=== PATIENT | female | born 1945 | race African-American/Black ===

== ENCOUNTER 2020-08-04 07:25 | Day surgery (SDC) | payer MEDICARE ==
[2020-08-03 12:43] VITALS: BMI 24.8
[2020-08-04 07:58] LABS: #Lymphocytes 0.9 thou/uL (1.20-3.40); #Monocytes 0.9 thou/uL (0.11-0.59); #Neutrophils 11.4 thou/uL (1.40-6.50); %Lymphocytes 6.7 % (21.0-51.0); %Monocytes 6.9 % (0.0-10.0); %Neutrophils 86.4 % (42.0-75.0); Hemoglobin 11.5 g/dL (12.0-16.0); Mean Corpuscular HGB CONC 32.3 g/dL (32.0-36.0); Mean Corpuscular Hemoglobin 29.9 pg (27.0-31.0); Mean Corpuscular Volume 92.5 fL (78.0-98.0); Mean Platelet Volume 7.4 fL (7.4-10.4); Platelet Count 281 thou/uL (130-400); RBC Distribution Width 13.1 % (11.5-14.5); Red Blood Cell (RBC) Count 3.86 mill/uL (4.20-5.40); White Blood Cell (WBC) Count 13.2 thou/uL (4.8-10.8)
[2020-08-04 08:06] LABS: INR-International Normal Ratio 1.1; PTT 30.9 sec (22.9-36.1); Prothrombin Time 14.7 sec (12.0-14.7)
[2020-08-04] MEDS ORDERED: Sodium Bicarbonate 2.5 MEQ/5 ML VIAL ONE (08:53)
[2020-08-04] MEDS ORDERED: Lidocaine 1% PF 5 ML VIAL ONE ×2 (08:53→09:28)
[2020-08-04] MEDS ORDERED: Fentanyl 100 MCG/2 ML VIAL ONE (08:54)
[2020-08-04] MEDS ORDERED: Midazolam HCl 2 mg/2 ml Vial ONE (08:54)
[2020-08-04] MEDS ORDERED: FLU VACC QS2020-21(65YR UP)/PF 240 MCG/0.7 ML SYRINGE IM ONE (09:00)
[2020-08-04 11:54] VITALS: BP 133/70; TEMP 98.1
--- NOTE | 2020-08-04 14:25 | ULT ---
PROCEDURE: US Hepatic Bx PROVIDED CLINICAL HISTORY: Hepatomegaly with innumerable metastatic lesions throughout the liver. COMPARISON: CT a abdomen on 08/01/2020 TECHNIQUE: The procedure including the risks and complications were explained to the patient, and informed conse nt was obtained. The patient was placed on the sonography table in the supine position. Limited sonographic evaluation of each lobe of the liver was performed. A lesion in the left hepatic lobe was localized, and the area was marked and then meticulously prepped and draped in usual sterile fashion. The skin and subcutaneous tissues were infiltrated with buffered 1% lidocaine for local anesthesia. A small skin incision was made. Utilizing concurrent real-time ultrasound guidance, a 17-gauge guide needle was advanced into the ant erior aspect of the lateral segment left hepatic lobe. The tip of the needle was placed at the peripheral margin of the left hepatic lobe lesion. A total of two 18-gauge core needle biopsy specime ns were obtained utilizing coaxial technique. Initial touch preps demonstrated malignant cells. No additional biopsy specimens were requested. The needle was removed, and hemostasis was achieved with direct pressure. Direct pressure was applied for approximately 10 minutes. Follow-up ultrasound examination demonstrates no perihepatic fluid or evidence of a hematoma. The patient was transported to radiology nurses holding area for further m onitoring prior to discharge. Patient's vital signs remained stable during the procedure as well as postprocedure. IMPRESSION: 1. Multiple metastatic lesions throughout each lobe of the liver. The liver is enlarged. 2. Technically successful ultrasound-guided biopsy of a lesion in the lateral segment left hepatic lo be. Pathology results are currently pending.
== END 2020-08-04 13:40 | disposition home or self-care (01) ==
LOC: ULT 07:25
PROVIDERS: ATTEND Physician Assistant Medical
PROC: 0FB23ZX Excision of Left Lobe Liver, Percutaneous Approach, Diagnostic (ICD-10-PCS; principal; 2020-08-04)
DX: C7B.8 Other secondary neuroendocrine tumors (principal); C80.1 Malignant (primary) neoplasm, unspecified; K86.89 Other specified diseases of pancreas; E11.9 Type 2 diabetes mellitus without complications; I10 Essential (primary) hypertension; E78.00 Pure hypercholesterolemia, unspecified; Z79.84 Long term (current) use of oral hypoglycemic drugs; Z79.899 Other long term (current) drug therapy
CPT/HCPCS: 47000; 76942; 85025; 85610; 85730; 88307; 88333; 88341; 88342; J2250; J3010

== ENCOUNTER 2020-08-06 18:46 | Emergency (ER) | payer MEDICARE ==
[2020-08-06 19:56] LABS: #Basophils 0.2 thou/uL (0.0-0.2); #Lymphocytes 0.7 thou/uL (1.20-3.40); #Monocytes 1.1 thou/uL (0.11-0.59); #Neutrophils 11.2 thou/uL (1.40-6.50); %Basophils 1.3 % (0.0-1.0); %Eosinophils 0.2 % (0.0-10.0); %Lymphocytes 5.6 % (21.0-51.0); Hemoglobin 11.5 g/dL (12.0-16.0); Mean Corpuscular HGB CONC 32.2 g/dL (32.0-36.0); Mean Platelet Volume 7.8 fL (7.4-10.4); Platelet Count 295 thou/uL (130-400); RBC Distribution Width 13.5 % (11.5-14.5); Red Blood Cell (RBC) Count 3.84 mill/uL (4.20-5.40); White Blood Cell (WBC) Count 13.2 thou/uL (4.8-10.8)
[2020-08-06 20:15] LABS: ALT (SGPT) 47 U/L (8-55); AST (SGOT) 153 U/L (5-34); Albumin 3.3 g/dL (3.4-4.8); Alkaline Phosphatase 401 U/L (40-110); Anion Gap 14 mmol/L (10-20); BUN (Urea Nitrogen) 19 mg/dL (9.8-20.1); Bilirubin, Total 1.1 mg/dL (0.2-1.2); Calc. Creatinine Clearance 0 mL/min (70-130); Calcium 9.3 mg/dL (7.8-10.44); Carbon Dioxide 27 mmol/L (23-31); Chloride 100 mmol/L (98-107); Estimated GFR-MDRD 76; Globulin 3.6 g/dL (2.4-3.5); Glucose 138 mg/dL (83-110); Lipase 185 U/L (8-78); Potassium 3.3 mmol/L (3.5-5.1); Protein, Total 6.9 g/dL (6.0-8.3); Sodium 138 mmol/L (136-145)
--- NOTE | 2020-08-06 21:52 | RAD ---
Exam: Single view of the chest and 2 views of the abdomen HISTORY: Abdominal bloating. Recent liver biopsy COMPARISON: CT abdomen 08/01/2020 FINDINGS: 2 views of the abdomen and a single view the chest shows a nonspecific, nonobstructive shakira l gas pattern. Air is seen to the level of the rectum. No free air or air-fluid levels are seen on upright examination. The cardiomediastinal silhouette is normal in size. Atherosclerotic calcifications are seen in the ao rta. There is no evidence of consolidation, mass, or pleural effusion. Degenerative changes are seen in the spine. IMPRESSION: Nonobstructive bowel gas pattern
== END 2020-08-06 22:38 | disposition home or self-care (01) ==
LOC: ERS 18:46
DX: R10.11 Right upper quadrant pain (principal); Z79.899 Other long term (current) drug therapy; Z79.891 Long term (current) use of opiate analgesic; Z79.84 Long term (current) use of oral hypoglycemic drugs; E78.5 Hyperlipidemia, unspecified; I10 Essential (primary) hypertension; E11.9 Type 2 diabetes mellitus without complications
CPT/HCPCS: 36415; 74022; 80053; 83690; 85025; 93005

== ENCOUNTER 2020-08-09 12:20 | Outpatient (CLI) | payer MEDICARE ==
--- NOTE | 2020-08-09 13:52 | RAD ---
CHEST 2 VIEWS: HISTORY: Preoperative evaluation. COMPARISON: 08/06/2020. 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 No confluent pneumonia, overt edema, or pleural effusion. IMPRESSION: Minimal bilateral horizontal linear parenchymal changes, nonspecific, but evidence for minimal chroni c change or subsegmental atelectasis. NO significant new process. POS: [facility]
[2020-08-09 14:24] LABS: #Neutrophils 12.2 10x3/uL (1.5-8.4); %Basophils 0.1 % (0.0-2.0); %Lymphocytes 5.1 % (18.0-47.0); %Monocytes 7.2 % (0.0-10.0); Hemoglobin 11.4 g/dL (12.0-16.0); Mean Corpuscular HGB CONC 31.4 G/DL (32.0-36.0); Mean Corpuscular Hemoglobin 29.3 PG (27.0-33.0); Mean Corpuscular Volume 93.3 fl (80.0-100.0); Mean Platelet Volume 10.9 fl (7.4-10.4); Platelet Count 290 10x3/uL (130-400); RBC Distribution Width 14.9 % (11.5-14.5); Red Blood Cell (RBC) Count 3.89 10x6/uL (3.90-5.20)
[2020-08-09 14:26] LABS: Anion Gap 17 mmol/L (10-20); BUN (Urea Nitrogen) 20 mg/dL (9.8-20.1); Calc. Creatinine Clearance 0 mL/min (70-130); Calcium 9.3 mg/dL (7.8-10.44); Carbon Dioxide 27 mmol/L (23-31); Chloride 101 mmol/L (98-107); Estimated GFR-MDRD 82; Glucose 111 mg/dL (83-110); Potassium 4.2 mmol/L (3.5-5.1); Sodium 141 mmol/L (136-145)
[2020-08-10 00:50] LABS: SARS-CoV-2 MS2 Positive; SARS-CoV-2 N Gene Negative; SARS-CoV-2 S Gene Negative; SARS-CoV-2 by NAA Not Detected (NotDetected); SARS-CoV-2 orf1ab Negative
== END 2020-08-09 12:21 | disposition home or self-care (01) ==
LOC: LABBT 12:20
PROVIDERS: ATTEND Specialist
DX: Z01.818 Encounter for other preprocedural examination (principal); C25.9 Malignant neoplasm of pancreas, unspecified; Z20.828 Contact with and (suspected) exposure to other viral communicable diseases
CPT/HCPCS: 71046; 80048; 80053; 85025; 93005; U0003; 36415; 87635; 93010

== ENCOUNTER 2020-09-26 18:33 | Emergency (ER) | payer MEDICARE | END 2020-09-26 19:30 | disposition left against medical advice (07) | LOC: ERS 18:33 | DX: Z53.21 Procedure and treatment not carried out due to patient leaving prior to being seen by health care provider (principal) ==